=== PATIENT | female | born 1980 | race Caucasian/White ===

== ENCOUNTER 2025-06-24 13:27 | Emergency (ER) | payer OTHER ==
[~2025-06-24] VITALS: Ht 170.2 cm; Wt 91.0 kg
--- NOTE | 2025-06-24 13:41 | ELECTROCARDIOGRAPH REPORT ---
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 Harry Dunaway Measurements Intervals [place] Rate: 106 P: 55 FL: 170 QRS: 36 QRSD: 83 T: 12 QT: 314 QTc: 417 Interpretive Statements Sinus tachycardia Probable left atrial enlargement Borderline T wave abnormalities Electronically Signed On 06-24-2025 18:34:[address] Harry Dunaway Please click the below link to view image of tracing.
[2025-06-24 13:51] LABS: MEAN PLATELET VOLUME 8.2 FL (7.4-10.4); RED CELL DISTRIBUTION WIDTH 13.7 % (11.5-14.5)
[2025-06-24 14:06] LABS: CREATININE 0.90 MG/DL (0.40-0.90); TOTAL CARBON DIOXIDE 24.9 MMOL/L (24-32); eCRCL 77 ML/MIN; eGFR 68 ML/MIN
[2025-06-24 14:23] VITALS: TEMP 98.9
--- NOTE | 2025-06-24 14:28 | Physician Documentation ---
History of Present Illness ~ Chief Complaint: Dizziness Stated Complaint: LIGHT HEADEDNESS Time Seen by MD: 14:07 Mode of Arrival: Ambulatory HPI 45-year-old female presents to the ED with a complaint of one day of feeling faint and having tingling in her upper extremities. She denies any history of anxiety denies any cardiac history also denies any chest pain or shortness of b reath. Says she is visiting here from [place] with her in the there are no alleviating or exacerbating factors. She is normally healthy. He is that her ear felt slightly itchy but denies any pain overall. Generally speaking her symptoms and history are nonspecific in nature. Day of Onset: Jun 24, 2025 Medication Reconciliation Allergies: Coded Allergies: No Known Allergies (Unverified , 06/24/25) Review of Systems All Other Systems at this time: Reviewed and Negative ROS As stated above in the HPI, otherwise all systems are reviewed and negative. Physical Exam Vital Signs: Temperature: 98.9, Source: Temporal, Heart Rate: 106, Respiratory Rate: 17, BP: 151/91, Pulse Oximetry: 100, Weight: 91.050 Oxygen Flow Rate: 0 Physical Exam General: Alert, no apparent distress. Respiratory: Lungs clear, no respiratory distress. Cardiovascular: Regular rate and rhythm, no murmurs. Gastrointestinal: Soft, nontender, nondistended. Bowels sounds present. Neurologic: Oriented x4. Psychiatric: Normal mood and affect. Skin: Normal color, warm and dry. No edema, no ecchymosis. Progress Results/Orders Results/Orders Orders - GABINO MILLAN NP Normal Saline 1000ml (0.9% Sodium Chlori (06/24/25 14:30) Medications Received in ER Medications (Trade) Dose Ordered Sig/Laura Route PRN Reason Start Time Stop Time Status Last Admin Dose Admin Sodium Chloride 1,000 ml @ 1,000 mls/hr ONCE ONCE IV 06/24/25 14:30 06/24/25 15:29 06/24/25 14:32 1,000 MLS/HR Vital Signs 06/24/25 06/24/25 06/24/25 13:31 14:11 14:23 Temp 98.9 98.9 Pulse 106 103 Resp 17 18 B/P (MAP) 151/91 129/88 (102) Pulse Ox 100 100 O2 Flow Rate 0 0 Laboratory Tests Test 06/24/25 13:45 06/24/25 14:11 White Blood Count 10.6 Red Blood Count 4.62 Hemoglobin 13.1 Hematocrit 39.4 Mean Corpuscular Volume 85.2 Mean Corpuscular Hemoglobin 28.3 Mean Corpuscular Hemoglobin Concent 33.2 Red Cell Distribution Width 13.7 Platelet Count 309 Mean Platelet Volume 8.2 Neutrophils (%) (Auto) 84.2 H Lymphocytes (%) (Auto) 10.9 L Monocytes (%) (Auto) 3.7 Eosinophils (%) (Auto) 0.7 Basophils (%) (Auto) 0.5 Neutrophils # (Auto) 9.0 H Lymphocytes # (Auto) 1.2 Monocytes # (Auto) 0.4 Eosinophils # (Auto) 0.1 Basophils # (Auto) 0.1 CBC Comment Sodium Level 137 Potassium Level 3.8 Chloride Level 105 Carbon Dioxide Level 24.9 Anion Gap 7 L Blood Urea Nitrogen 12 Creatinine 0.90 Estimated GFR/1.73 m2 68 BUN/Creatinine Ratio 13.3 Glucose Level 124 H Calcium Level 8.7 Total Bilirubin 1.0 Aspartate Amino Transf (AST/SGOT) 14 Alanine Aminotransferase (ALT/SGPT) 27 Alkaline Phosphatase 64 Total Protein 8.1 Albumin 4.2 Globulin 3.9 Albumin/Globulin Ratio 1.1 Lipase 31 Chemistry Comments Urine Specimen Description Cln catch midstream Urine Color Straw Urine Clarity Clear Urine pH 7.0 Urine Specific [place] <=1.005 Urine Protein Negative Urine Glucose (UA) Negative Urine Ketones Negative Urine Occult Blood Negative Urine Nitrite Negative Urine Bilirubin Negative Urine Urobilinogen 0.2 Urine Leukocyte Esterase Negative Urine Culture Indicated Not ind Volume Urine Centrifuged 10 ml Urine Comment Medical Decision Making Findings This patient is mildly tachycardic I suspect she may be dehydrated secondary to come into an area that has hot her than she is used to.. Anxiety he can not be ruled out as well. In addition I talked with the patient about the possibility of this being a hormonal imbalance secondary to perimenopause. Her laboratory results and her EKG are mostly unremarkable. Going to give her a bolus of normal saline in his CS she feels discharge if she reports improvement Differential Dx:Considerations: Include: anemia, CVA, dehydration, dysrhythmia, electrolyte imbalance, encephalopathy, Guillain-[place], hypoglycemia, hypo tension, hypovolemia, labyrinthitis, Meniere's disease, myasathenia gravis, myocardial infarction, pulmonary embolus, renal failure, respiratory failure, TIA, VBI, vertigo central, vertigo peripheral, vestibular neuronitis, other Departure Disposition: 01 HOME / SELF CARE / HOMELESS Impression: Primary Impression: Dizziness Additional Impression: Dehydration Condition: Stable Discharge Instructions: Dizziness Referrals: NO PRIMARY CARE PROVIDER (PCP) Education Educated: Patient Educated regarding: diagnosis Signature Scribe Signature: f Attestation: Scribed for Gabino Millan Developer Advisor by Gabino Grider NP . 06/24/25 15:19 GABINO MILLAN NP Jun 24, 2025 14:28
[2025-06-24] MEDS: normal saline 1000ml 1,000 ML IV ONE (14:32)
[2025-06-24 14:33] LABS: LEUKOCYTE ESTERASE ,URINE NEGATIVE (Neg); NITRITES, URINE NEGATIVE (Neg); OCCULT BLOOD,URINE NEGATIVE (Neg)
[2025-06-24 14:35] LABS: UA COLLECTION TYPE CLN CATCH MIDSTREAM
[2025-06-24 15:55] VITALS: BP 109/69; PULSE 91; RESP 16; O2SAT 100
== END 2025-06-24 15:58 | disposition home or self-care (01) ==
LOC: ER 13:28
DX: R42 Dizziness and giddiness (principal); R20.2 Paresthesia of skin; E86.0 Dehydration
CPT/HCPCS: 36415; 80053; 81003; 83690; 85025; 93005; 99284; J7030; 99285